=== PATIENT | male | born 1970 | race Caucasian/White ===

== ENCOUNTER 2016-11-18 13:17 | Inpatient (IN) | payer OTHER, MEDICAID ==
--- NOTE | 2016-11-18 13:24 | EDPHY ---
H & P Stated Complaint: On M1; denies HI or SI Source: Patient Exam Limitations: No limitations - Personal History Current Tetanus Diphtheria and Acellular Pertussis (TDAP): Yes Tetanus Vaccine Date: unknown - Medical/Surgical History Hx Asthma: No Hx Chronic Respiratory Disease: No Hx Diabetes: No Hx Cardiac Disease: No Hx Renal Disease: No Hx Cirrhosis: No Hx Alcoholism: No Hx HIV/AIDS: No Hx Splenectomy or Spleen Trauma: No Other PMH: schizoaffective disorder - Social History Smoking Status: Never smoked Time Seen by Provider: 11/18/16 13:23 HPI/ROS: CHIEF COMPLAINT: Increasing symptoms of bipolar mood disorder, insomnia, disorientation HISTORY OF PRESENT ILLNESS: The patient has a history of bipolar mood disorder and is on a number of medications. The patient reportedly has had increasing symptoms of insomnia and disorientation over the past several days. The patient denies any drug or alcohol use. He denies suicidal or homicidal ideation. The patient is accompanied by his significant other who reports he has decompensated somewhat secondary to problems with their housing. The patient has been exhibiting symptoms of flight of ideas and slight delusions. The patient denies any acute medical complaints such as fever, cough and diarrhea. The patient has been compliant with all of his medications for his bipolar mood disorder. REVIEW OF SYSTEMS: A comprehensive 10 point review of systems is otherwise negative aside from elements mentioned in the history of present illness. (Alfonzo Elizondo) - Physical Exam Exam: General Appearance: Alert, no distress Eyes: Pupils equal and round no pallor or injection ENT, Mouth: Mucous membranes moist Respiratory: There are no retractions, lungs are clear to auscultation Cardiovascular: Regular rate and rhythm Gastrointestinal: Abdomen is soft and nontender, no masses, bowel sounds normal Neurological: A&O, normal motor function, normal sensory exam, normal cranial nerves Skin: Warm and dry, no rashes Musculoskeletal: Neck is supple nontender Extremities: symmetrical, full range of motion Psychiatric: Tangential, pressured speech, denies suicidal ideation, denies homicidal ideation (Alfonzo Elizondo) Constitutional: Initial Vital Signs Temperature (C) 36.8 C 11/18/16 13:21 Heart Rate 57 L 11/18/16 13:21 Respiratory Rate 16 11/18/16 13:21 Blood Pressure 110/75 11/18/16 13:21 O2 Sat (%) 98 11/18/16 13:21 O2 Delivery Mode Room Air Allergies/Adverse Reactions: tape Allergy (Mild, Uncoded 11/18/16 13:20) ski irritation Home Medications: Medication Instructions Recorded Paliperidone Palmitate [Invega 234 mg IM Q30D 03/29/14 Sustenna (RX)] Paliperidone [Invega 3mg ER (RX)] 6 mg PO DAILY PRN 03/29/14 Benztropine Mesylate [Cogentin] 1 mg PO BID 14 Days 04/24/14 LORazepam [Ativan (*)] 1 mg PO HS PRN #14 tab 04/24/14 [place] Carbonate [[place] 600 mg PO DAILY 14 Days 04/24/14 Carbonate Cap 300 mg (*)] [place] Carbonate [[place] 900 mg PO HS 14 Days 04/24/14 Carbonate Tab 300 mg (*)] Paliperidone [Invega 3mg ER (*)] 3 mg PO HS #14 tab.er 04/24/14 lamoTRIgine [LaMICtal] 50 mg PO DAILY 14 Days 04/24/14 lamoTRIgine [LaMICtal] 50 mg PO HS 14 Days 04/24/14 Medical Decision Making ED Course/Re-evaluation: The patient has been medically cleared and is awaiting inpatient psychiatric hospitalization placement. The patient remained stable throughout my shift. The patient was given 1 mg of oral Ativan. The patient is noted to have a therapeutic lithium level in the emergency department. The patient has no evidence of a obvious toxidrome noted clinically. The patient was placed on an M1 psychiatric hold prior to his arrival in the emergency department. 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 The patient will be turned over to Dr. Villar at shift change. (Alfonzo Elizondo) I took over care of this patient at 3:30 p.m.. This patient is on an M1 hold currently for manic behavior. History of bipolar disorder. He has been evaluated by Mental Health. He is currently awaiting placement. 8:00 p.m., patient seen and evaluated by Behavioral Health. Patient will be transferred to [address] [place] [address]. I have filled out the appropriate transfer paperwork. Patient's remaining emergency department course under my care has been uneventful. He was transferred in stable condition. (Wally Villar) Differential Diagnosis: Differential diagnosis considered includes bipolar mood disorder, dehydration, metabolic abnormality, psychosis, suicidal ideation, lithium toxicity (Alfonzo Elizondo) - Data Points Laboratory Results: Laboratory Results 11/18/16 13:40 11/18/16 13:50 11/18/16 11/18/16 11/18/16 17:10 13:50 13:40 WBC 11.01 10^3/uL H 10^3/uL (3.80-9.50) RBC 4.80 10^6/uL 10^6/uL (4.40-6.38) Hgb 14.4 g/dL g/dL (13.7-17.5) Hct 43.5 % % (40.0-51.0) MCV 90.6 fL fL (81.5-99.8) MCH 30.0 pg pg (27.9-34.1) MCHC 33.1 g/dL g/dL (32.4-36.7) RDW 12.1 % % (11.5-15.2) Plt Count 291 10^3/uL 10^3/uL (150-400) MPV 10.2 fL fL (8.7-11.7) Neut % (Auto) 63.1 % % (39.3-74.2) Lymph % (Auto) 24.1 % % (15.0-45.0) [place] % (Auto) 8.5 % % (4.5-13.0) Eos % (Auto) 3.3 % % (0.6-7.6) Baso % (Auto) 0.5 % % (0.3-1.7) Nucleat RBC Rel Count 0.0 % % (0.0-0.2) Absolute Neuts (auto) 6.95 10^3/uL H 10^3/uL (1.70-6.50) Absolute Lymphs (auto) 2.65 10^3/uL 10^3/uL (1.00-3.00) Absolute Monos (auto) 0.94 10^3/uL H 10^3/uL (0.30-0.80) Absolute Eos (auto) 0.36 10^3/uL 10^3/uL (0.03-0.40) Absolute Basos (auto) 0.06 10^3/uL 10^3/uL (0.02-0.10) Absolute Nucleated RBC 0.00 10^3/uL 10^3/uL (0-0.01) Immature Gran % 0.5 % % (0.0-1.1) Immature Gran # 0.05 10^3/uL 10^3/uL (0.00-0.10) Sodium 135 mEq/L mEq/L (134-144) Potassium 4.0 mEq/L mEq/L (3.5-5.2) Chloride 103 mEq/L mEq/L (97-110) Carbon Dioxide 22 mEq/l mEq/l (22-31) Anion Gap 10 mEq/L mEq/L (8-16) BUN 18 mg/dL mg/dL (7-23) Creatinine 1.2 mg/dL mg/dL (0.7-1.3) Estimated GFR > 60 Glucose 94 mg/dL mg/dL (70-100) Calcium 9.7 mg/dL mg/dL (8.5-10.4) Urine Opiates Screen NEGATIVE (NEGATIVE) Urine Barbiturates NEGATIVE (NEGATIVE) Ur Phencyclidine Scrn NEGATIVE (NEGATIVE) Ur Amphetamine Screen NEGATIVE (NEGATIVE) U Benzodiazepines Scrn NEGATIVE (NEGATIVE) [place] 1.0 mEq/L mEq/L (0.6-1.2) Urine Cocaine Screen NEGATIVE (NEGATIVE) U Marijuana (THC) Screen NON-NEGATIVE H (NEGATIVE) Ethyl Alcohol < 10 mg/dL mg/dL (0-10) Medications Given: Discontinued Medications Ondansetron HCl (Zofran Odt) 4 mg PO EDNOW ONE Stop: 11/18/16 17:08 Last Admin: 11/18/16 17:08 Dose: 4 mg Departure - Departure Disposition: [facility] IP Clinical Impression: Acute psychosis, Bipolar affective disorder, current episode manic with psychotic symptoms Condition: Fair Referrals: JOSE G CAVAZOS [Primary Care Provider] - As per Instructions
[2016-11-18 14:05] LABS: % IMMATURE GRANULYOCYTES 0.5 % (0.0-1.1); ABSOLUTE IMMATURE GRANULOCYTES 0.05 10^3/uL (0.00-0.10); ADD DIFF? NO; ADD MORPH? NO; ADD SCAN? NO; ATYPICAL LYMPHOCYTE FLAG 0 (0-99); FRAGMENT RBC FLAG 0 (0-99); HEMATOCRIT 43.5 % (40.0-51.0); HEMOGLOBIN 14.4 g/dL (13.7-17.5); LEFT SHIFT FLG 0 (0-99); LIPEMIA HEMOLYSIS FLAG 80 (0-99); MEAN CELL HEMOGLOBIN CONCENTR. 33.1 g/dL (32.4-36.7); MEAN CELL VOLUME 90.6 fL (81.5-99.8); MEAN PLATELET VOLUME 10.2 fL (8.7-11.7); PLATELET CLUMPS FLAG 0 (0-99); PLATELET COUNT 291 10^3/uL (150-400); RED CELL DISTRIBUTION WIDTH 12.1 % (11.5-15.2)
[2016-11-18 14:30] LABS: ANION GAP 10 mEq/L (8-16); CALCIUM 9.7 mg/dL (8.5-10.4); CARBON DIOXIDE 22 mEq/l (22-31); CHLORIDE 103 mEq/L (97-110); CREATININE 1.2 mg/dL (0.7-1.3); ETHANOL SERUM < 10 mg/dL (0-10); GLOMERULAR FILTRATION RATE > 60; GLUCOSE 94 mg/dL (70-100); SODIUM 135 mEq/L (134-144)
[2016-11-18] MEDS ORDERED: ONDANSETRON DISINTEGRATING 4 MG TAB PO ONE (17:07)
[2016-11-18] MEDS ORDERED: MAG HYDROX/AL HYDROX/SIMETH 30 ML UDCUP PO PRN (22:38)
[2016-11-18] MEDS ORDERED: MAGNESIUM HYDROXIDE 30 ML UDCUP PO PRN (22:38)
[2016-11-18] MEDS ORDERED: LITHIUM CARBONATE 300 MG TAB PO SCH (22:45)
[2016-11-18] MEDS: lamoTRIgine 25 MG TAB PO SCH (22:48)
[2016-11-18] MEDS: PALIPERIDONE 3 MG TAB.ER PO SCH (22:48)
[2016-11-18] MEDS: LORazepam 0.5 MG TAB PO PRN (23:07)
[2016-11-18] MEDS: ACETAMINOPHEN 325 MG TAB PO PRN (23:34)
[2016-11-19] MEDS: LORazepam 0.5 MG TAB PO PRN ×2 (03:56→21:11)
[2016-11-19] MEDS: OLANZapine DISINTEGR 5 MG TAB PO PRN (04:32)
--- NOTE | 2016-11-19 08:14 | PDGENHP ---
History and Physical History and Physical: CC: This patient is admitted to the [facility] with worsening bipolar symptoms; I am asked by Dr. Bustos to assess the patient and assist in his care. History: This patient has a history of bipolar disorder and apparently has been taking medicines. However he was brought in by significant other with complaint that recently he has become more disorganized and having other symptoms of acute valdez. He came into the ER yesterday was transferred to the Behavioral Health Unit overnight where I am seeing him now. This time the patient is quite somnolent and falls asleep repeatedly during my assessment. in talking to him he has some very bizarre ideations and delusions. Between the somnolence and the psychosis I am unable to get a really accurate history of any physical illness. He does admit to me that he has some chronic shoulder and hip pains that have been present since teenage years when he had sports-related injuries. As best I can tell there are no other symptoms of physical illness but again the history is very limited. When he does tell me is that he has "water illness" which she explains by saying that he gets in and out of a hot tub and shower. ROS: A 10 system comprehensive review is attempted but due to the patient's somnolence and delusional state is felt to be very limited in accuracy. No specific symptoms other than some chronic joint pains are identified. PMH: bipolar, no other illnesses Apparently sports-related injuries as a teenager Social: has lived in [facility] in the past. I am currently unable to determine with accuracy where he has been living As best I can tell he does not use any alcohol, drugs or tobacco Family history: I am unable to obtain any helpful family history from the patient at this time Vitals: stable without fever exam: The patient is extremely somnolent. I can wake him up but he falls back to sleep within a few seconds each time. When I have him try and sit on the side of his bed he falls asleep and actually starts to fall over onto the bed and I have to guide him back onto the bed. When I can get him to stay awake long enough to engage in any conversation he is clearly very delusional with flight of ideas. He does not appear to be hallucinating. There are no tremors. He is relaxed. There is no evidence of head injury. Pupils are normal in facial symmetry is normal. When he is awake enough to speak his speech is normally articulated. There is no sign of focal weakness and I was able to get the patient to walk across his room back successfully without assistance. Respirations not labored skin is warm dry with good color no rashes or other lesions lungs are clear heart is regular without murmur abdomen is normal extremities are normal no adenopathy no signs of bleeding or bruising ASSSESSMENT: 1- bipolar disorder with active psychotic symptoms 2- chronic multiple joint aches from sports injuries 3- some trochanteric bursitis of R hip could benefit from outpatient physical therapy 4- somnolence from lack of sleep and medications He is too somnolent and tangential to get a real thorough symptom assessment at this time. RECOMMENDATION: -outpt PT for R hip bursitis -notify [facility] if any other medical concerns arise
[2016-11-19] MEDS: lamoTRIgine 25 MG TAB PO SCH (08:25)
[2016-11-19] MEDS: PALIPERIDONE 3 MG TAB.ER PO SCH ×2 (08:26→21:09)
[2016-11-19] MEDS ORDERED: lamoTRIgine 100 MG TAB PO ONE (10:30)
[2016-11-19] MEDS ORDERED: TEMAZEPAM 15 MG CAP PO PRN (10:30)
[2016-11-19] MEDS: LITHIUM CARBONATE 600 MG CAP PO SCH ×2 (12:02→21:08)
--- NOTE | 2016-11-19 12:56 | BAPA ---
[f rep st] ADMISSION PSYCHIATRIC ASSESSMENT DATE OF SERVICE: 11/19/2016 CHIEF COMPLAINT: "It's a really long story." HISTORY OF PRESENT ILLNESS: Patient is a 45-year-old male with a longstanding history of bipolar disorder. He was brought to the hospital after his significant other took him to the walk-in clinic through [facility]. He has approximately a week long history of lack of sleep and increasing manic behaviors. He has been impulsive and pressured and increasingly disorganized in his thinking. He states that he has been compliant with his medications and indeed his lithium level on admission was 1.0. He does not know exactly why he would be decompensating, except that he has been using increasing amounts of marijuana, but he states it is prescribed by a marijuana practitioner. He has been using edibles twice a day in a titration up in amount for the past approximately 2 weeks. Patient is vague and disorganized about this history and timelines and it is difficult to get a full understanding of the exact temporal relationship between these 2 factors. He was last with us in March 2014 and I did work with him at that time. PAST PSYCHIATRIC HISTORY: Patient was first diagnosed with bipolar disorder in the early . He has had numerous hospitalizations since that time. His last hospitalization here was in March of 2014. At that time, he was very psychotic and manic. He is followed by [facility] and states that he has been compliant with his medication regimen. ALLERGIES: Tape. CURRENT MEDICATIONS: Lamictal 200 mg daily, lithium carbonate 600 mg twice daily, and Invega Sustenna 114 mg monthly. SOCIAL HISTORY: Patient lives with his significant other. She is referred to us as partner in the chart, but he states it is his . Either way, they have had a long-term relationship. They have a 5-year-old child and she is with their 2nd child. 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 He did just graduate from [employer] with a master's degree in psychology and Religion therapy. He states he wants to open a form of a Religion therapy practice. He notes some financial stress, but notes no other acute stressors at this time. SUBSTANCE ABUSE HISTORY: Patient states he drinks rarely, but uses cannabis on a daily basis. It is difficult to quantitate the amount. FAMILY HISTORY: Noncontributory per patient's report. ADMISSION LABORATORY: CBC shows a white count up at 11.01, otherwise normal. Serum chemistries are normal. Urine drug screen is positive for marijuana. [place] on admission was 1.0. MENTAL STATUS EXAMINATION: A marginally groomed, moderately obese white male, wearing extremely tight pants and shirt that seem to be at least a size too small for him. His external appearance is otherwise normal. He interacts well with the examiner, though is easily distracted. His affect is constricted, stable, appropriate. His mood is described as "just fine." His thought process is disorganized with some tangential thoughts and some looseness of associations. His thought content reveals possible paranoia as he is hypervigilant. He denies any auditory, visual or tactile hallucinations. Patient is alert and oriented to person, place, time, and situation. There is no evidence of delirium. His attention and concentration appear adequate, though he is either internally preoccupied or blocking. His intellect appears to be average to above average as evidenced by his educational/occupational histories, fund of knowledge, and vocabulary. He denies any thoughts of suicide , homicide, or violence. His insight and judgment appear to be poor. IMPRESSION: 1. Bipolar 1 disorder, most recent episode manic, severe, with psychosis. 2. Cannabis use disorder, severe. 3. Marital stress, financial stress, pending of a child. Patient is a 45-year-old male with history of bipolar disorder. When he was here in 2013 he was very ill and he appears to have precipitously declined into a psychotic valdez again. It is unclear how many of his medicines he was taking on a regular basis, though he states he was taking all of them. With his normal lithium level, I would tend to believe him. If that is the case , it would have to point to the cannabis as the inciting factor for his valdez. He states that this is his medicine and that he desires to continue to use it. We will monitor him on his current medicines, restarting some oral Invega to help with the acute psychosis. We will monitor his clinical course here and hope to see resolution of the psychosis and valdez in a reasonable time frame. Cannabis is an important factor, however, this could be protracted. Estimated length of stay is 5 to 7 days. /[id number]/MODL MTDD
[2016-11-19] MEDS: MELATONIN 3 MG TAB PO SCH (21:08)
[2016-11-20] MEDS: OLANZapine DISINTEGR 5 MG TAB PO PRN ×2 (00:19→08:05)
[2016-11-20] MEDS: LORazepam 0.5 MG TAB PO PRN ×2 (01:36→08:05)
[2016-11-20] MEDS: LITHIUM CARBONATE 600 MG CAP PO SCH ×2 (08:05→19:24)
[2016-11-20] MEDS: lamoTRIgine 100 MG TAB PO SCH (08:06)
[2016-11-20] MEDS: PALIPERIDONE 3 MG TAB.ER PO SCH ×2 (08:06→19:24)
--- NOTE | 2016-11-20 15:23 | SOAPPROG ---
SOAP Progress Note Assessment/Plan: Assessment: 45yo with BMD, acutely manic and psychotic in context of incr psychosocial stressors and incr THC use, despite reported outpt med compliance 11/20/16 17:39 per staff, slept 1.5hr HS shift, and 1.5hr PM shift over past 24hr. was disorganized, confused, naked but med compliant. and 5yo visited at lunchtime, felt he was worse and more confused, and didn 't even interact w/his child so they left. on interview, pt A&O to November 18, 2016, pleasant and cooperative. somewhat sluggish in speech, good eye contact, mood "good", affect euthymic, noted with disorganized thoughts/responses, denied SI/HI or any AH/VH. states he had a hybrid before admission. talked about zyprexa prn last pm and no sleep then about [place] and nose cartilage needing a massage after asked to perform [id number] (+intention tremor noted). has VIVIEN, brought CPAP. PLAN: received total 30mg zyprexa and 3mg ativan as prns throughout the night and still only 1.5hr sleep. sluggish and confused this am. will d/c zyprexa prns change restoril to seroquel for valdez and insomnia, 50mg qhs with additional prn cont invega 3mg bid, monitor for eps. on invega sustenna monthly. could taper to d/c invega as improves, and as THC clears. cont lithium 600mg bid. will check trough Li level. encouraged to wear CPAP Objective: Vital Signs Temp Pulse Resp BP Pulse Ox 36.8 C 107 H 12 127/83 H 96 11/20/16 08:00 11/20/16 08:00 11/20/16 08:00 11/20/16 08:00 11/20/16 08:00 Medications Generic Name Dose Route Start Last Admin Trade Name Freq PRN Reason Stop Dose Admin Temazepam 15 mg 11/19/16 10:30 11/19/16 21:55 Restoril PO 05/18/17 10:29 15 mg HS PRN Sleep/Insomnia Lorazepam 0.5 - 1 mg 11/18/16 22:38 11/20/16 08:05 Ativan PO 05/17/17 22:37 1 mg Q4HRS PRN Anxiety, Able to Take PO Melatonin 3 mg 11/19/16 21:00 11/19/16 21:08 Melatonin PO 05/18/17 20:59 3 mg HS VIV Lamotrigine 200 mg 11/20/16 09:00 11/20/16 08:06 Lamictal PO 05/19/17 08:59 200 mg DAILY VIV [place] Carbonate 600 mg 11/19/16 10:30 11/20/16 08:05 [place] Carbonate PO 05/18/17 10:29 600 mg BID VIV Olanzapine 5 - 10 mg 11/18/16 22:39 11/20/16 08:05 Zyprexa Zydis PO 05/17/17 22:38 10 mg Q6 PRN PSYCHOSIS Paliperidone 3 mg 11/18/16 22:45 11/20/16 08:06 Invega PO 05/17/17 22:44 3 mg BID VIV - Time Spent With Patient Time Spent With Patient: 25min - Pending Discharge Pending Discharge Within 24 Hours: No Pending Discharge Within 48 Hours: No ICD10 Worksheet Patient Problems: Problems Problem Status Onset Acute psychosis Acute Bipolar affective disorder, current episode manic with psychotic symptoms Acute
[2016-11-20] MEDS: MELATONIN 3 MG TAB PO SCH (19:24)
[2016-11-20] MEDS: QUEtiapine FUMARATE 50 MG TAB PO PRN (19:25)
[2016-11-21] MEDS ORDERED: QUEtiapine FUMARATE 50 MG TAB PO PRN ×2 (02:17→03:15)
[2016-11-21] MEDS: ACETAMINOPHEN 325 MG TAB PO PRN (02:49)
[2016-11-21] MEDS: PALIPERIDONE 3 MG TAB.ER PO SCH ×2 (09:16→20:31)
[2016-11-21] MEDS: LITHIUM CARBONATE 600 MG CAP PO SCH ×2 (09:17→20:31)
[2016-11-21] MEDS: lamoTRIgine 100 MG TAB PO SCH (09:17)
--- NOTE | 2016-11-21 18:52 | SOAPPROG ---
SOAP Progress Note Assessment/Plan: Assessment: 45yo with BMD, acutely manic and psychotic in context of incr psychosocial stressors and incr THC use, despite reported outpt med compliance 11/20/16 17:39 per staff, slept 1.5hr HS shift, and 1.5hr PM shift over past 24hr. was disorganized, confused, naked but med compliant. and 6yo visited at lunchtime, felt he was worse and more confused, and didn 't even interact w/his child so they left. on interview, pt A&O to November 18, 2016, pleasant and cooperative. somewhat sluggish in speech, good eye contact, mood "good", affect euthymic, noted with disorganized thoughts/responses, denied SI/HI or any AH/VH. states he had a hybrid before admission. talked about zyprexa prn last pm and no sleep then about [place] and nose cartilage needing a massage after asked to perform [id number] (+intention tremor noted). has VIVIEN, brought CPAP. PLAN: received total 30mg zyprexa and 3mg ativan as prns throughout the night and still only 1.5hr sleep. sluggish and confused this am. will d/c zyprexa prns change restoril to seroquel for valdez and insomnia, 50mg qhs with additional prn cont invega 3mg bid, monitor for eps. on invega sustenna monthly. could taper to d/c invega as improves, and as THC clears. cont lithium 600mg bid. will check trough Li level. encouraged to wear CPAP 11/21/16 12:45 slept 4hr last night. seemed improved from disorganization yesterday. told staff brain felt more clear today. visited. spoke w/ and pt. both feel pt at 50% of baseline, improved but not well yet. wore CPAP last pm. pt does not feel THC use contributed to decompensation, also not convinced but certainly feels anxiety about bedbugs contributed to insomnia and resulting decompensation. states he didn't sleep for a week. educated on effects of THC on mental health, also need for CPAP compliance and continued med compliance. Denied med s/e or any physical problems. *Informed of M1 expiring today and pt declined to stay voluntarily although then said he doesn't mind "the 90 days" stay, but then added "I'm not doing that again". understood. 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 MSE: wearing pants inside out and shirt backwards, disheveled, nml eye contact and speech rate/vol, denied SI/HI or any AH/VH. thoughts still with some disorganization noted. no overt delusions. i/j impaired. PLAN: STC as above noted. Incr seroquel to 100mg qhs, with additional 50mg qhs prn. seems slept more last night. Since on Invega Sustenna and now adding seroquel, will decr po invega to 2mg bid and monitor. Li+ consistent at 1.0. cont Lehr and Lamictal. Cont to use CPAP Objective: Vital Signs Temp Pulse Resp BP Pulse Ox 36.4 C 60 12 112/71 93 11/21/16 02:50 11/21/16 02:50 11/21/16 02:50 11/21/16 02:50 11/21/16 02:50 - Time Spent With Patient Time Spent With Patient: 35min - Pending Discharge Pending Discharge Within 24 Hours: No Pending Discharge Within 48 Hours: No ICD10 Worksheet Patient Problems: Problems Problem Status Onset Acute psychosis Acute Bipolar affective disorder, current episode manic with psychotic symptoms Acute
[2016-11-21] MEDS: MELATONIN 3 MG TAB PO SCH (20:31)
[2016-11-21] MEDS: QUEtiapine FUMARATE 100 MG TAB PO SCH (20:31)
[2016-11-21] MEDS ORDERED: PALIPERIDONE 3 MG TAB.ER PO SCH (22:45)
[2016-11-22] MEDS: lamoTRIgine 100 MG TAB PO SCH (10:11)
[2016-11-22] MEDS: PALIPERIDONE 3 MG TAB.ER PO SCH ×2 (10:11→20:27)
[2016-11-22] MEDS: LITHIUM CARBONATE 600 MG CAP PO SCH ×2 (10:11→20:27)
--- NOTE | 2016-11-22 17:29 | SOAPPROG ---
SOAP Progress Note Assessment/Plan: Assessment: Plan: 11/22/16 17:28 Remains disorganized, but much better. Grandiose and bizarre delusions are much decreased. Will CCM, finalize d/c plan. Subjective: Pt seen, discussed with staff. Upbeat and pleasantly interactive. Reports feeling "more organized." In fact appears more organized than on last interview. He states he is "about ready to go home." Still wanders some in conversation. No behavioral issues, less intrusive. Objective: Vital Signs Temp Pulse Resp BP Pulse Ox 36.5 C 79 16 144/82 H 94 11/22/16 03:59 11/22/16 09:52 11/22/16 09:52 11/22/16 09:52 11/22/16 09:52 - Time Spent With Patient Time Spent With Patient: 25" ICD10 Worksheet Patient Problems: Problems Problem Status Onset Acute psychosis Acute Bipolar affective disorder, current episode manic with psychotic symptoms Acute
[2016-11-22] MEDS: QUEtiapine FUMARATE 100 MG TAB PO SCH (20:27)
[2016-11-22] MEDS: MELATONIN 3 MG TAB PO SCH (20:27)
[2016-11-22] MEDS: QUEtiapine FUMARATE 50 MG TAB PO PRN (23:58)
[2016-11-23] MEDS: ACETAMINOPHEN 325 MG TAB PO PRN (03:21)
[2016-11-23] MEDS: LITHIUM CARBONATE 600 MG CAP PO SCH ×2 (09:18→20:23)
[2016-11-23] MEDS: PALIPERIDONE 3 MG TAB.ER PO SCH ×2 (09:18→20:23)
[2016-11-23] MEDS: lamoTRIgine 100 MG TAB PO SCH (09:19)
--- NOTE | 2016-11-23 17:06 | SOAPPROG ---
SOAP Progress Note Assessment/Plan: Assessment: Plan: 11/22/16 17:28 Remains disorganized, but much better. Grandiose and bizarre delusions are much decreased. Will [facility], finalize d/c plan. 11/23/16 17:06 Continued improvement. [facility]. Will have family meeting tomorrow around noon to discuss current condition and d/c plan. Subjective: Pt seen, discussed with staff. Reports feeling "a lot better." Encouraged about prospects for d/c. Slept b/n 5.5 and 8 hours last night. Compliant with meds. Offers no c/o's. Objective: Vital Signs Temp Pulse Resp BP Pulse Ox 36.4 C 83 14 124/82 H 94 11/23/16 15:26 11/23/16 00:30 11/23/16 15:26 11/23/16 15:26 11/23/16 15:26 MSE: Calm, coop, interactive. Grooming is improved. Affect is bright, less elevated, stable. Mood is "good." TP more linear. Still derails at times with possible blocking. TC reveals no overt delusions. - Time Spent With Patient Time Spent With Patient: 25" ICD10 Worksheet Patient Problems: Problems Problem Status Onset Acute psychosis Acute Bipolar affective disorder, current episode manic with psychotic symptoms Acute
[2016-11-23] MEDS: MELATONIN 3 MG TAB PO SCH (20:24)
[2016-11-23] MEDS: QUEtiapine FUMARATE 100 MG TAB PO SCH (20:24)
[2016-11-24] MEDS: ACETAMINOPHEN 325 MG TAB PO PRN ×2 (01:08→06:13)
[2016-11-24 02:50] VITALS: TEMP 97.3
[2016-11-24] MEDS: QUEtiapine FUMARATE 50 MG TAB PO PRN (03:42)
[2016-11-24 07:53] VITALS: BP 127/76; PULSE 75; RESP 17; O2SAT 94
[2016-11-24] MEDS: LITHIUM CARBONATE 600 MG CAP PO SCH (09:48)
[2016-11-24] MEDS: PALIPERIDONE 3 MG TAB.ER PO SCH (09:48)
[2016-11-24] MEDS: lamoTRIgine 100 MG TAB PO SCH (09:48)
--- NOTE | 2016-11-25 05:56 | BDS ---
[f rep st] BEHAVIORAL HEALTH DISCHARGE SUMMARY REASON FOR ADMISSION: Patient is a 45-year-old, male, with a history of brittle bipolar d isorder. He has a tendency to have abrupt shifts to valdez with psychosis, and stated that approxima tely a week before this admission, he began sleeping poorly and exhibiting manic behaviors. He dee me impulsive and disorganized, and his brought him to the hospital for evaluation. His lithium level on admission was 1, and it was thought by me that his recent focus on various different canna bis strains as an adjunct treatment was likely the cause of his destabilization. A full description of the events preceding admission can be found in his admission history dated 11/19/2016. ADMITTING DIAGNOSES: 1. Bipolar 1 disorder, most recent episode manic, severe, with psychosis. 2. Cannabis use disorder. 3. Severe, marital stress. 4. Financial stress. 5. Impending of a child. ADMITTING PHYSICAL EXAMINATION: Performed by Dr. Mando Rodgers revealed bursitis in his right hip. No other acute findings. ADMISSION LABORATORY: CBC shows a white count of 11, with a normal neutrophil percentage. Serum ch emistries are normal. Urine drug screen is positive for marijuana. [place] level is 1. HOSPITAL COURSE: Patient was admitted to the [facility] inpatient unit on an M1 hold. He was extremely disorganized, delusional, and was minimally able to communicate in a reasonable m terry when I interviewed him on 11/19/2016. I indicated to him that we would restart his medication s as they were previously prescribed, and he was agreeable to this. Over the weekend, he did well; however, he improved significantly with increased organization and was able to converse and communic ate more appropriately. When I saw him again on Tuesday, he was much more linear and able to describ e the circumstances preceding admission and discuss his care. He was agreeable to continuing the me dications as they were, as he was improving, and I discussed with him my concerns about the cannabis use. He was not very accepting of this at first, though when we had a family meeting on the day of discharge, he stated he would at least give it 3 months off, to see if this made a difference. Dr. Cabral admitted him and started him on oral Invega 3 mg twice daily to supplement his Sustenna, whi ch he receives 117 mg a month. He tolerated this well with no apparent side effects. He states mina t he has taken propranolol and Cogentin in the past, but did not have any apparent EPS while he was with us. The patient's hospitalization was uncomplicated. He was cooperative and pleasant, and improved sign ificantly on a day-by-day basis. By the time of discharge, he did not appear to be manic or psychot ic, and though he was rambling somewhat in the family meeting, his laughed and stated that this is his typical means of communication. CONDITION ON DISCHARGE: Stable. His affect was euthymic, stable, and appropriate. He was displayi ng no evidence of psychosis or thoughts of suicide. DISCHARGE MEDICATIONS: Lamictal 200 mg daily, Invega 3 mg twice daily, Invega Sustenna 117 mg IM mo nthly, Seroquel 150 mg at bedtime, levothyroxine 75 mcg daily, lithium carbonate 600 mg twice daily. DISCHARGE DIAGNOSES: 1. Bipolar 1 disorder, most recent episode manic, severe, with psychosis. 2. Cannabis use disorder, severe. 3. Marital conflict pending of a child and financial stressors. DISPOSITION: Patient left the hospital with his to return home. FOLLOW UP: Extensive workup was done by the career technology teacher to arrange followup with both [facility] and with [facility]. The patient vacillated greatly as to which he wo uld prefer to see, and wanted to have the option of testing each 1 to make a decision. LEGAL COURSE: The patient was placed on a short-term certification at the expiration of his M1 hold . Short-term certification was discontinued at the time of his discharge. /[id number]/[id number]
== END 2016-11-24 13:00 | disposition home or self-care (01) | DRG 885 ==
LOC: BBEH 22:10
PROVIDERS: ADMIT Psychiatry & Neurology Behavioral Neurology & Neuropsychiatry; ATTEND Psychiatry & Neurology Psychiatry
DX: F31.2 Bipolar disorder, current episode manic severe with psychotic features (principal); F12.90 Cannabis use, unspecified, uncomplicated; Z63.8 Other specified problems related to primary support group; F43.9 Reaction to severe stress, unspecified
CPT/HCPCS: 80305; G0480